=== PATIENT | male | born 2000 | race Caucasian/White ===

== ENCOUNTER → 2020-03-06 | Outpatient (CLI) | payer BC, OTHER ==
[2020-03-06 13:17] LABS: HEMOGLOBIN 16.4 gm/dl (14.0-17.5); RED BLOOD COUNT 5.82 M/UL (4.20-5.50)
[2020-03-06 13:37] LABS: BUN/CREATININE RATIO 11 (0-10)
== END ==
LOC: RT 12:39
PROVIDERS: Emergency Medicine
DX: R07.89 Other chest pain (principal); R00.1 Bradycardia, unspecified; I21.9 Acute myocardial infarction, unspecified; R94.31 Abnormal electrocardiogram [ECG] [EKG]
CPT/HCPCS: 36415; 80053; 85025; 85379; 93005